=== PATIENT | female | born 1980 | race Caucasian/White ===

== ENCOUNTER 2017-04-27 11:38 | Emergency (ER) | payer BC ==
[2017-04-27 11:44] VITALS: BP 131/69
[2017-04-27] MEDS ORDERED: Ibuprofen TAB* 600 MG PO ONE (11:53)
[2017-04-27] MEDS ORDERED: Tetan/Diph/Pertus SYR(Tdap)* 0.5 ML SYR(BOOSTRIX) use SYR IM ONE (11:54)
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
== END 2017-04-27 12:52 | disposition home or self-care (01) ==
LOC: UCEAST 11:38
DX: T23.001A Burn of unspecified degree of right hand, unspecified site, initial encounter (principal); T22.111A Burn of first degree of right forearm, initial encounter; T22.211A Burn of second degree of right forearm, initial encounter; T31.0 Burns involving less than 10% of body surface; Z23 Encounter for immunization; X16.XXXA Contact with hot heating appliances, radiators and pipes, initial encounter; Z88.0 Allergy status to penicillin; Z87.891 Personal history of nicotine dependence; Y92.9 Unspecified place or not applicable
CPT/HCPCS: 90715; 99213; A9270-GY; G0463

== ENCOUNTER 2017-12-07 16:09 | Emergency (ER) | payer BC ==
[2017-12-07 16:27] VITALS: BP 134/87
--- NOTE | 2017-12-07 16:46 | ED ---
Respiratory - HPI Summary HPI Summary: 37F presents with cough for the past week. She admits to a sore throat that started past couple days. She states cough so hard has been vomiting. No abdominal pain. She notes occasional headaches. No sinus congestion. No ear pain. She gets occasional shortness of breath. No chest pain. She is nonsmoker. No history asthma or COPD. She has been using nytequil and dayquil with minimal relief. - History of Current Complaint Chief Complaint: UCGeneralIllness Stated Complaint: SORE THROAT,COUGH Time Seen by Provider: 12/07/17 16:35 Pain Intensity: 0 - Allergy/Home Medications Allergies/Adverse Reactions: Allergies Allergy/AdvReac Type Severity Reaction Status Date / Time Penicillins Allergy Unknown Verified 12/07/17 16:27 Reaction Details Home Medications: Home Medications Ibuprofen TAB* [Motrin TAB* 400 MG] 400 mg PO Q6H PRN 12/07/17 [History Confirmed 12/07/17] PMH/Surg Hx/FS Hx/Imm Hx Endocrine/Hematology History: Denies: Hx Diabetes, Hx Thyroid Disease Cardiovascular History: Denies: Hx Hypertension, Hx Pacemaker/ICD Respiratory History: Denies: Hx Asthma, Hx Chronic Obstructive Pulmonary Disease (COPD) GI History: Denies: Hx Ulcer History: Denies: Hx Renal Disease Sensory History: Denies: Hx Hearing Aid Psychiatric History: Denies: Hx Panic Disorder - Surgical History Surgery Procedure, Year, and Place: LEEP PROCEDURE , APPENDECTOMY, LSP DISCECTOMY 2003 Infectious Disease History: No Infectious Disease History: Denies: Hx Clostridium Difficile, Hx Hepatitis, Hx Human Immunodeficiency Virus (HIV), Hx of Known/Suspected MRSA, Hx Shingles, Hx Tuberculosis, Hx Known/ Suspected VRE, Hx Known/Suspected VRSA, History Other Infectious Disease, Traveled Outside the [place] in Last 30 Days - Family History Known Family History: Negative: Hypertension - Social History Alcohol Use: None Substance Use Type: Reports: None Smoking Status (MU): Former Smoker Review of Systems Negative: Fever Positive: Sore Throat Negative: Chest Pain Positive: Shortness Of Breath, Cough Positive: Vomiting. Negative: Abdominal Pain All Other Systems Reviewed And Are Negative: Yes Physical Exam Triage Information Reviewed: Yes Vital Signs On Initial Exam: Initial Vitals Temp Pulse Resp BP Pulse Ox 98.2 F 84 18 134/87 98 12/07/17 16:21 12/07/17 16:21 12/07/17 16:21 12/07/17 16:21 12/07/17 16:21 Vital Signs Reviewed: Yes Appearance: Positive: Well-Appearing Skin: Positive: Warm, Dry Head/Face: Positive: Normal Head/Face Inspection Eyes: Positive: Normal, EOMI, LALITO, Conjunctiva Clear ENT: Positive: Normal ENT inspection, Pharyngeal erythema, TMs normal, Uvula midline, Other - soft palate symmetric. Negative: Tonsillar swelling, Tonsillar exudate, Trismus, Muffled voice Respiratory/Lung Sounds: Positive: Clear to Auscultation, Breath Sounds Present Cardiovascular: Positive: Normal, RRR Abdomen Description: Positive: Nontender, Soft Bowel Sounds: Positive: Present Musculoskeletal: Positive: Normal Neurological: Positive: Normal Psychiatric: Positive: Normal Diagnostics - Vital Signs Vital Signs Temp Pulse Resp BP Pulse Ox 12/07/17 16:21 98.2 F 84 18 134/87 98 - Laboratory Lab Statement: Any lab studies that have been ordered have been reviewed, and results considered in the medical decision making process. - Radiology chest Xray Interpretation: Positive (See Comments) - IMPRESSION: SMALL LEFT LOWER LOBE INFILTRATE AND TRACE PLEURAL EFFUSION. Radiology Interpretation Completed By: Radiologist Disposition - Course Course Of Treatment: 37F presents with cough for the past week. She admits to a sore throat that started past couple days. She states cough so hard has been vomiting. No abdominal pain. She notes occasional headaches. No sinus congestion. No ear pain. She gets occasional shortness of breath. No chest pain. She is nonsmoker. No history asthma or COPD. She has been using nytequil and dayquil with minimal relief. On exam pharynx erythematous. Uvula midline. Soft palate symmetric. Lungs clear to auscultation. Chest x-ray shows pneumonia. will treat with steroid inhaler zpack and Tessalon. patient requesting something for pain for throat so will do magic mouth wash. Will have follow-up with primary about blood pressure elevated at this time in pre-htn range. Patient understands agrees with plan. - Differential Dx - Cardiopulmonary Differential Diagnoses - Cardiopulmonary: Bronchitis, Lower Resp Infection, Other - pharyngitis - Diagnoses Provider Diagnoses: Pneumonia Discharge - Sign-Out/Discharge Documenting (check all that apply): Patient Departure - Discharge Plan Condition: Good Disposition: HOME Prescriptions: Albuterol HFA INHALER* [Ventolin HFA Inhaler*] 1 puff INH Q6H PRN #1 mdi PRN Reason: Cough Azithromycin TAB* [Zithromax TAB (Z-PINEDA) 250 mg #6 tabs] 2 tab PO .TODAY, THEN 1 DAILY #1 pineda Benzonatate CAP* [Tessalon 100 MG CAP*] 100 mg PO TID #21 cap Magic Mouth Was-MITUL/MAAL/LIDO* 5 ml SWISH SPIT QID #100 ml predniSONE TAB* [Deltasone TAB*] 50 mg PO DAILY #5 tab Patient Education Materials: Pneumonia (ED) Forms: *Work Release Referrals: Mary Head MD [Primary Care Provider] - Additional Instructions: Take antibiotic 2 tablets today and one tablet for following 4 days Use Tessalon three times a day for cough Use inhaler one puff every 4 hours for cough as needed Take steroid once a day for 5 days Magic mouthwash 5ml swish and spit can use 4x a day Follow up with primary care physician in 5 days Return to ED if develop any new or worsening symptoms - Billing Disposition and Condition Condition: GOOD Disposition: Home
--- NOTE | 2017-12-07 17:06 | RAD ---
INDICATION: Cough. COMPARISON: Comparison is made with prior chest x-ray study from February 02, 2013. TECHNIQUE: Dual-energy PA and lateral views of the chest were obtained. FINDINGS: The heart is within normal limits in size. Mediastinal and hilar contours appear within normal limits. There is a small infiltrate in the left lower lobe and a trace left pleural effusion. The right lung appears clear. IMPRESSION: SMALL LEFT LOWER LOBE INFILTRATE AND TRACE PLEURAL EFFUSION.
== END 2017-12-07 17:20 | disposition home or self-care (01) ==
LOC: UCEAST 16:09
DX: J18.9 Pneumonia, unspecified organism (principal); Z88.0 Allergy status to penicillin; Z87.891 Personal history of nicotine dependence
CPT/HCPCS: 71046; 99212; G0463

== ENCOUNTER 2018-08-18 09:42 | Emergency (ER) | payer BC ==
[2018-08-18 09:49] VITALS: BP 120/71
--- NOTE | 2018-08-18 10:46 | UC ---
Throat Pain/Nasal Urban HPI - HPI Summary HPI Summary: Several days of right-sided sore throat, pain with swallowing and headache. Has mild cough and congestion. No fever, nausea/vomiting. - History of Current Complaint Chief Complaint: UCGeneralIllness Stated Complaint: SORE THROAT Time Seen by Provider: 08/18/18 09:58 Hx Obtained From: Patient Hx Last Menstrual Period: 07/28/18 Onset/Duration: Gradual Onset, Lasting Days, Still Present Severity: Moderate Pain Intensity: 3 Pain Scale Used: 0-10 Numeric Cough: Nonproductive Associated Signs & Symptoms: Negative: Fever - Allergies/Home Medications Allergies/Adverse Reactions: Allergies Allergy/AdvReac Type Severity Reaction Status Date / Time Penicillins Allergy Unknown Verified 08/18/18 09:49 Reaction Details Home Medications: Home Medications NK [No Home Medications Reported] 08/18/18 [History Confirmed 08/18/18] PMH/Surg Hx/FS Hx/Imm Hx Previously Healthy: Yes - Surgical History Surgical History: Yes Surgery Procedure, Year, and Place: LEEP PROCEDURE , APPENDECTOMY, LSP DISCECTOMY 2003 - Family History Known Family History: Negative: Hypertension - Social History Alcohol Use: None Substance Use Type: None Smoking Status (MU): Former Smoker Review of Systems All Other Systems Reviewed And Are Negative: Yes Constitutional: Positive: Fatigue ENT: Positive: Sore Throat, Nasal Discharge Respiratory: Positive: Cough Cardiovascular: Positive: Negative Gastrointestinal: Positive: Negative Neurological: Positive: Headache Physical Exam Triage Information Reviewed: Yes Appearance: Well-Appearing, No Pain Distress, Well-Nourished Vital Signs: Initial Vital Signs Temp 98 F 08/18/18 09:46 Pulse 73 08/18/18 09:46 Resp 17 08/18/18 09:46 BP 120/71 08/18/18 09:46 Pulse Ox 100 08/18/18 09:46 Laboratory Tests 08/18/18 10:00 Group A Strep Rapid Negative Vital Signs Reviewed: Yes Eyes: Positive: Conjunctiva Clear ENT: Positive: Hearing grossly normal, Pharynx normal, TMs normal Neck: Positive: Supple, Tenderness @ - SHOTTY TENDER SPFL CERVICAL LAD RIGHT SIDE, Enlarged Nodes @ - SHOTTY TENDER SPFL CERVICAL LAD Respiratory Exam: Normal Cardiovascular Exam: Normal Abdomen Description: Positive: Soft Musculoskeletal: Positive: No Edema Neurological: Positive: Alert Psychological: Positive: Age Appropriate Behavior Skin: Negative: Rashes Throat Pain/Nasal Course/Dx - Differential Dx/Diagnosis Provider Diagnosis: Acute pharyngitis Discharge - Sign-Out/Discharge Documenting (check all that apply): Patient Departure All imaging exams completed and their final reports reviewed: No Studies - Discharge Plan Condition: Stable Disposition: HOME Patient Education Materials: Pharyngitis (ED) Referrals: Mary Head MD [Primary Care Provider] - Additional Instructions: STREP TEST NEGATIVE. YOUR SYMPTOMS ARE LIKELY VIRALLY MEDIATED AND SHOULD RESOLVE ON THEIR OWN WITH TIME. NO INDICATION FOR ANTIBIOTICS AT PRESENT. REST, HYDRATE, OTC MEDS NEEDED. SEEK FOLLOW-UP IF YOU ARE NOT IMPROVING OVER THE NEXT 1-2 WEEKS. - Billing Disposition and Condition Condition: STABLE Disposition: Home
== END 2018-08-18 10:34 | disposition home or self-care (01) ==
LOC: UCEAST 09:42
DX: J02.9 Acute pharyngitis, unspecified (principal); R53.83 Other fatigue; Z88.0 Allergy status to penicillin; Z87.891 Personal history of nicotine dependence
CPT/HCPCS: 87651; 99211; G0463

== ENCOUNTER 2019-04-19 14:45 | Emergency (ER) | payer BC ==
[2019-04-19 15:13] VITALS: BP 142/84
--- NOTE | 2019-04-19 15:15 | UC ---
Cardiac HPI - HPI Summary HPI Summary: 39-year-old woman comes in with a chief complaint of chest pain. At 9 AM while sitting at work had sudden onset of pressure on her chest. She feels like pushing on her chest. Describes it as mild 2 out of 10. Lasted about 30 minutes. Shortness of breath started with chest pressure. Chest pressure does come and go. Shortness of breath has remained. Shortness of breath is worse with activity. At her workplace somebody check her heart rate and it was not elevated. She's also developed a scratchy throat and wonders if her symptoms are due to an upper respiratory tract infection as her children are both sick at this time. She has been having intermittent left-sided neck pain for about a week it's worse with moving her neck. Chest pressures in the middle of her chest denies any radiation. No nausea or sweating. No sputum production. She did have some abdominal discomfort earlier today and then she had a bowel movement and the abdominal discomfort went away. No pedal edema no calf pain. No history of DVT no family history of DVT. Patient is not on a control pill. No recent surgical procedures. - History of Current Complaint Stated Complaint: CHEST CONGESTION Time Seen by Provider: 04/19/19 15:01 Hx Last Menstrual Period: 07/28/18 - Allergy/Home Medications Allergies/Adverse Reactions: Allergies Allergy/AdvReac Type Severity Reaction Status Date / Time Penicillins Allergy Unknown Verified 04/19/19 15:13 Reaction Details Home Medications: Home Medications Ibuprofen 400 mg PO ONCE PRN 04/19/19 [History Confirmed 04/19/19] PMH/Surg Hx/FS Hx/Imm Hx Previously Healthy: Yes - Surgical History Surgical History: Yes Surgery Procedure, Year, and Place: LEEP PROCEDURE , APPENDECTOMY, LSP DISCECTOMY 2003 - Family History Known Family History: Negative: Hypertension - Social History Alcohol Use: None Substance Use Type: None Smoking Status (MU): Former Smoker Review of Systems All Other Systems Reviewed And Are Negative: Yes Constitutional: Positive: Other - see hpi Skin: Positive: Negative Eyes: Positive: Negative ENT: Positive: Negative Respiratory: Positive: Shortness Of Breath Cardiovascular: Positive: Chest Pain Gastrointestinal: Positive: Negative Motor: Positive: Negative Neurovascular: Positive: Negative Musculoskeletal: Positive: Negative Neurological: Positive: Negative Psychological: Positive: Negative Is Patient Immunocompromised?: No Physical Exam Triage Information Reviewed: Yes Appearance: Well-Appearing, No Pain Distress, Well-Nourished Vital Signs Reviewed: Yes Eye Exam: Normal Eyes: Positive: Conjunctiva Clear ENT: Positive: Pharynx normal, TMs normal Neck: Positive: Supple Respiratory: Positive: Lungs clear, Normal breath sounds, No respiratory distress Cardiovascular: Positive: RRR Musculoskeletal: Positive: Strength Intact, ROM Intact, No Edema - no calf tenderness Neurological: Positive: Alert, Muscle Tone Normal Psychological: Positive: Age Appropriate Behavior Skin Exam: Normal Diagnostics - EKG Cardiac Rate: NL - AT 1516 Cardiac Rhythm: Sinus: Normal - 81BPM Ectopy: None ST Segment: Normal - Assessment/Plan Course Of Treatment: I discussed the EKG and vital signs with the patient. I do not see any ischemic changes or irregular rhythm on the EKG. We discussed diagnosis of cardiac ischemia and pulmonary embolus and the need to have blood work that can only be done in the emergency department for those diagnoses. Based on PERC rules, patient is low risk for pulmonary embolus. I do not see any ischemic changes on the EKG. We discussed getting a chest x-ray to evaluate for the cause of her shortness of breath and she declined. Also discussed going to the emergency department for further evaluation which she also referred to not do at this time. She did tell me that she's had albuterol in the past when she's had upper respiratory tract infection and that's helped. She declined a albuterol nebulizer here in clinic. I did write a prescription for an albuterol inhaler. Discussed with her different possibilities for chest pain and shortness of breath and that if her symptoms did not improve or they worsen she needs to the emergency department. Otherwise she can follow-up with primary care doctor. - Clinical Impression Provider Diagnosis: Chest pain, Shortness of breath Discharge ED - Sign-Out/Discharge Documenting (check all that apply): Patient Departure All imaging exams completed and their final reports reviewed: No Studies - Discharge Plan Condition: Stable Disposition: HOME Prescriptions: Albuterol HFA INHALER* [Ventolin HFA Inhaler*] 2 puff INH Q4H PRN #1 mdi PRN Reason: Shortness Of Breath Patient Education Materials: Chest Pain (ED), Shortness of Breath (ED) Forms: *Work Release Referrals: Mary Head MD [Primary Care Provider] - Additional Instructions: FOLLOW UP WITH YOUR DOCTOR. GO TO THE EMERGENCY DEPARTMENT IF NOT IMPROVED OR WORSE; CHEST PAIN, SHORTNESS OF BREATH, PALPITATIONS, YOU FEEL ILL OR ANY QUESTIONS OR CONCERNS. - Billing Disposition and Condition Condition: STABLE Disposition: Home
== END 2019-04-19 15:51 | disposition home or self-care (01) ==
LOC: UCEAST 14:45
DX: R06.02 Shortness of breath (principal); R07.9 Chest pain, unspecified; Z88.0 Allergy status to penicillin; Z87.891 Personal history of nicotine dependence
CPT/HCPCS: 99212; G0463

== ENCOUNTER 2019-05-19 13:11 | Emergency (ER) | payer BC ==
[2019-05-19 13:33] VITALS: BP 127/89
--- NOTE | 2019-05-19 14:08 | UC ---
Throat Pain/Nasal Urban HPI - HPI Summary HPI Summary: Patient was coughing 2 weeks ago, seemed to be better until 5-6 day sago when she strated getting nasal congestion, sinus pain and headache. for 2 days has had green nasal drainage and sputum, no SOB. also had fever for 2-3 days. is trying OTC cough/cold meds w/o relief - History of Current Complaint Chief Complaint: UCRespiratory Stated Complaint: COUGH, CONGESTION Time Seen by Provider: 05/19/19 13:54 Hx Obtained From: Patient Hx Last Menstrual Period: 05/05/19 ?: No Onset/Duration: Gradual Onset Severity: Moderate Pain Intensity: 5 Cough: Productive - green - infrequent Associated Signs & Symptoms: Positive: Sinus Discomfort, Fever - Allergies/Home Medications Allergies/Adverse Reactions: Allergies Allergy/AdvReac Type Severity Reaction Status Date / Time Penicillins Allergy Unknown Verified 05/19/19 13:33 Reaction Details PMH/Surg Hx/FS Hx/Imm Hx Previously Healthy: Yes Respiratory History: Asthma - Surgical History Surgical History: Yes Surgery Procedure, Year, and Place: LEEP PROCEDURE , APPENDECTOMY, LSP DISCECTOMY 2003 - Family History Known Family History: Negative: Hypertension - Social History Occupation: Employed Full-time Lives: With Family Alcohol Use: Rare Substance Use Type: None Smoking Status (MU): Former Smoker Review of Systems All Other Systems Reviewed And Are Negative: Yes Constitutional: Positive: Fever, Fatigue Skin: Positive: Negative ENT: Positive: Sore Throat - intermittant, Nasal Discharge, Sinus Congestion, Sinus Pain/Tenderness Respiratory: Positive: Cough. Negative: Shortness Of Breath Cardiovascular: Positive: Negative. Negative: Chest Pain Gastrointestinal: Positive: Negative Neurological: Positive: Headache - frontal area Psychological: Positive: Negative Is Patient Immunocompromised?: No Physical Exam Triage Information Reviewed: Yes Appearance: Well-Appearing, No Pain Distress, Well-Nourished Vital Signs: Initial Vital Signs Temp 98.4 F 05/19/19 13:31 Pulse 87 05/19/19 13:31 Resp 18 05/19/19 13:31 BP 127/89 05/19/19 13:31 Pulse Ox 99 05/19/19 13:31 Vital Signs Reviewed: Yes Eye Exam: Normal Eyes: Positive: Conjunctiva Clear ENT: Positive: Pharynx normal - thick PND, Nasal congestion, TMs normal, Sinus tenderness Neck exam: Normal Neck: Positive: Supple, Nontender, No Lymphadenopathy Respiratory Exam: Normal Respiratory: Positive: Lungs clear, Other: - no cough on exam Cardiovascular Exam: Normal Cardiovascular: Positive: RRR Musculoskeletal Exam: Normal Neurological Exam: Normal Psychological Exam: Normal Skin Exam: Normal Skin: Negative: Rashes Throat Pain/Nasal Course/Dx - Differential Dx/Diagnosis Differential Diagnosis/HQI/PQRI: Influenza, Pharyngitis, Sinusitis, Tonsillitis , URI Provider Diagnosis: Sinusitis Discharge ED - Sign-Out/Discharge Documenting (check all that apply): Patient Departure All imaging exams completed and their final reports reviewed: No Studies - Discharge Plan Condition: Good Disposition: HOME Prescriptions: Cefdinir [Cefdinir 300 MG CAP] 300 mg PO BID #20 cap Patient Education Materials: Sinusitis (ED) Referrals: Mary Head MD [Primary Care Provider] - 3 Days (if no better) Additional Instructions: drink plenty of fluids and rest take antibiotic as directed continue over the counter cough and cold medication for symptom relief - Billing Disposition and Condition Condition: GOOD Disposition: Home - Attestation Statements Provider Attestation: I was available for consult. This patient was seen by the BIJU. The patient was not presented to, seen by, or examined by me. -Jeronimo
== END 2019-05-19 14:36 | disposition home or self-care (01) ==
LOC: UCEAST 13:11
DX: J32.9 Chronic sinusitis, unspecified (principal); R53.83 Other fatigue; J45.909 Unspecified asthma, uncomplicated; J02.9 Acute pharyngitis, unspecified; R05 Cough; Z88.0 Allergy status to penicillin; Z87.891 Personal history of nicotine dependence
CPT/HCPCS: 99212; G0463